=== PATIENT | male | born 1945 | race Caucasian/White ===

== ENCOUNTER 2018-01-06 17:37 | Emergency (ER) | payer MEDICARE, OTHER ==
[2018-01-06] MEDS ORDERED: Proparacaine 0.5% Opth 15 ML BOT ONE (20:40)
[2018-01-06] MEDS ORDERED: Ketorolac Tromethamine 30 MG/ML VIAL ONE (20:40)
[2018-01-06] MEDS ORDERED: Fluorescein Opthalmic Strip ONE (21:24)
== END 2018-01-06 23:04 | disposition home or self-care (01) ==
LOC: ERS 17:37
DX: S05.71XA Avulsion of right eye, initial encounter (principal); H11.31 Conjunctival hemorrhage, right eye; I10 Essential (primary) hypertension; I25.10 Atherosclerotic heart disease of native coronary artery without angina pectoris; Z87.891 Personal history of nicotine dependence; Z79.899 Other long term (current) drug therapy; W22.8XXA Striking against or struck by other objects, initial encounter
CPT/HCPCS: 96372; J1885